=== PATIENT | female | born 1965 | race African-American/Black ===

== ENCOUNTER → 2018-01-05 | Outpatient (REF) | payer OTHER ==
[2018-01-05 18:15] LABS: BASO % 0.5 % (0.0-1.0); EOS # 0.3 10^3/uL (0.0-0.50); EOS % 2.9 % (0.0-3.0); HEMATOCRIT 40.4 % (36.0-47.0); HEMOGLOBIN 12.8 g/dl (12.0-16.0); IMMATURE GRANULOCYTE % 0.2 % (0-3.0); LYMPH # 2.1 10^3/uL (1.5-4.5); LYMPH % 24.4 % (24.0-44.0); MEAN CORPUSCULAR HEMOGLOBIN 28.1 pg (27.0-33.0); MEAN CORPUSCULAR HGB CONC 31.7 g/dl (32.0-36.5); MEAN CORPUSCULAR VOLUME 88.6 fl (80.0-96.0); MONO # 0.6 10^3/uL (0.0-0.8); MONO % 6.3 % (0.0-5.0); NEUTROPHILS # 5.7 10^3/uL (1.8-7.7); NEUTROPHILS % 65.7 % (36.0-66.0); PLATELET COUNT, AUTOMATED 242 10^3/uL (150-450); RED BLOOD COUNT 4.56 10^6/uL (4.00-5.40); RED CELL DISTRIBUTION WIDTH 13.2 % (11.5-14.5); WHITE BLOOD COUNT 8.7 10^3/uL (4.0-10.0)
[2018-01-05 18:20] LABS: PTH INTACT 60.9 PG/ML (18.5-88.0); TOTAL 25(OH) VITAMIN D 19.5 NG/ML (30.0-100.0)
[2018-01-05 18:21] LABS: FOLATE 8.2 NG/ML (>5.4); VITAMIN B12 LEVEL 815 PG/ML (247-911)
[2018-01-05 18:26] LABS: ALBUMIN 3.6 GM/DL (3.2-5.2); ALBUMIN/GLOBULIN RATIO 1.03 (1.00-1.93); ALKALINE PHOSPHATASE 107 U/L (45-117); ALT/SGPT 23 U/L (12-78); ANION GAP 7 MEQ/L (8-16); AST/SGOT 18 U/L (7-37); BILIRUBIN,TOTAL 0.2 MG/DL (0.2-1.0); BLOOD UREA NITROGEN 8 MG/DL (7-18); CALCIUM LEVEL 8.8 MG/DL (8.5-10.1); CARBON DIOXIDE LEVEL 29 MEQ/L (21-32); CHLORIDE LEVEL 109 MEQ/L (98-107); CHOLESTEROL LEVEL 209 MG/DL (<200); FREE T4 0.89 NG/DL (0.76-1.46); GLOMERULAR FILTRATION RATE > 60.0 (>51); GLUCOSE, FASTING 85 MG/DL (70-100); HDL CHOLESTEROL 54 MG/DL (>40); LDL CHOLESTEROL 118.2 MG/DL (<100); NON-HDL-C 155 MG/DL; POTASSIUM SERUM 3.7 MEQ/L (3.5-5.1); SODIUM LEVEL 145 MEQ/L (136-145); TOTAL PROTEIN 7.1 GM/DL (6.4-8.2); TRIGLYCERIDES LEVEL 184 MG/DL (<150)
== END ==
LOC: M SFHCPLAZ 14:44
DX: Z13.228 Encounter for screening for other metabolic disorders (principal); E53.8 Deficiency of other specified B group vitamins; Z13.220 Encounter for screening for lipoid disorders; E55.9 Vitamin D deficiency, unspecified
CPT/HCPCS: 82746

== ENCOUNTER → 2018-01-07 | Outpatient (CLI) | payer OTHER | LOC: M WHC 13:28 | DX: Z12.31 Encounter for screening mammogram for malignant neoplasm of breast (principal); Z78.0 Asymptomatic menopausal state; Z80.42 Family history of malignant neoplasm of prostate | CPT/HCPCS: 77067 ==

== ENCOUNTER 2018-04-26 11:58 | Outpatient (RCR) | payer OTHER | END 2018-05-24 | LOC: M PT 11:58 | DX: Z51.89 Encounter for other specified aftercare (principal); M54.16 Radiculopathy, lumbar region; G57.03 Lesion of sciatic nerve, bilateral lower limbs; M51.36 Other intervertebral disc degeneration, lumbar region ==

== ENCOUNTER 2018-05-26 13:47 | Outpatient (RCR) | payer OTHER | END 2018-06-24 | LOC: M PT 13:47 | DX: Z47.89 Encounter for other orthopedic aftercare (principal); M54.16 Radiculopathy, lumbar region; G57.03 Lesion of sciatic nerve, bilateral lower limbs; M51.36 Other intervertebral disc degeneration, lumbar region | CPT/HCPCS: 97010 ==

== ENCOUNTER 2018-09-12 16:49 | Emergency (ER) | payer OTHER | END 2018-09-12 17:47 | disposition home or self-care (01) | LOC: M ED 16:49 | DX: M54.5 Low back pain (principal) | CPT/HCPCS: 99282 ==

== ENCOUNTER 2018-12-22 15:20 | Emergency (ER) | payer OTHER ==
[~2018-12-22] VITALS: Ht 167.6 cm; Wt 81.8 kg
[~2018-12-22 15:20] MED LIST: CYCL10TA PO; IBUP-1022 PO
--- NOTE | 2018-12-22 16:42 | REP ---
Clinical: Trauma/fall . Technique: AP, lateral, bilateral oblique, and coned-down views. Findings: Alignment and lordosis is maintained. The vertebral bodies including transverse process and spinous processes are intact and normal. There is no evidence for acute fracture / compression injury or subluxation. No evidence for spondylolysis or spondylolisthesis. No significant degenerative change is noted. Impression: Normal age-appropriate lumbosacral spine radiograph series. Electronically Signed by Duc Rosario MD 12/22/2018 04:33 P
[2018-12-22 19:50] VITALS: BP 127/83
[2018-12-22] MEDS ORDERED: NORCO, ANEXSIA 5/325MG TABLET (HYDROcodone/ACETAMINOPHEN) PO ONE (20:00)
[2018-12-22] MEDS ORDERED: NORCOTAB PO (21:04)
[2018-12-22] MEDS ORDERED: IBUP-1022 PO (21:04)
[2018-12-22] MEDS ORDERED: NORCO 5/325MG TABLET (BULK FOR ED) PO ONE (21:15)
--- NOTE | 2018-12-23 08:22 | REP ---
Clinical: Trauma. Technique: Three views of the sacrum and coccyx. Findings: The bilateral sacroiliac joints appear intact. Lateral view cannot exclude a very subtle injury involving the very inferior portion of the sacrum. Curvature on the lateral radiograph is relatively maintained. Impression: Cannot exclude a very subtle fracture of the distal/inferior portion of the sacrum. Electronically Signed by Duc Rosario MD 12/23/2018 08:14 A
== END 2018-12-22 21:28 | disposition home or self-care (01) ==
LOC: M ED 15:20
DX: M53.3 Sacrococcygeal disorders, not elsewhere classified (principal); R93.7 Abnormal findings on diagnostic imaging of other parts of musculoskeletal system; W00.0XXA Fall on same level due to ice and snow, initial encounter; Y92.89 Other specified places as the place of occurrence of the external cause; Z88.1 Allergy status to other antibiotic agents; Z88.0 Allergy status to penicillin; Z88.2 Allergy status to sulfonamides